=== PATIENT | male | born 1985 | race Caucasian/White ===

== ENCOUNTER → 2016-10-07 | Outpatient (CLI) | payer OTHER ==
[2016-04-07 18:11] VITALS: BP 129/69
[~2016-10-07] MED LIST: PROAIR HFA8.5 GM INH
--- NOTE | 2016-10-07 11:14 | RAD ---
Right knee, 3 views, 10/07/2016: History: Knee injury There is mild marginal spurring at the knee joint and at the patellofemoral articulation. No fracture or dislocation is identified. There is no radiographic evidence of a joint effusion. IMPRESSION: 1. Mild degenerative change. 2. No acute abnormality is detected.
== END | disposition home or self-care (01) ==
LOC: RAD 09:59
PROVIDERS: ATTEND Surgery
DX: S89.91XA Unspecified injury of right lower leg, initial encounter (principal)
CPT/HCPCS: 73560